=== PATIENT | male | born 1940 | race Caucasian/White ===

== ENCOUNTER 2022-07-27 22:01 | Observation (INO) | payer MEDICARE, BC ==
[2022-07-27 22:56] LABS: #Basophils 0.1 10x3/uL (0.0-0.2); #Eosinphils 0.2 10x3/uL (0.0-0.5); #Monocytes 0.6 10x3/uL (0.0-1.1); #Neutrophils 6.1 10x3/uL (1.5-8.4); %Basophils 0.8 % (0.0-2.0); %Eosinophils 2.3 % (0.0-6.0); %Monocytes 6.9 % (0.0-10.0); %Neutrophils 67.3 % (40.0-75.0); Hemoglobin 14.2 g/dL (13.5-17.5); Mean Corpuscular HGB CONC 34.9 g/dL (32.0-36.0); Mean Corpuscular Hemoglobin 31.3 pg (27.0-33.0); Mean Corpuscular Volume 89.6 fl (81.2-95.1); Mean Platelet Volume 8.9 fl (7.4-10.4); Platelet Count 231 10x3/uL (150-450); RBC Distribution Width 12.7 % (11.5-14.5); Red Blood Cell (RBC) Count 4.54 10x6/uL (4.32-5.72); White Blood Cell (WBC) Count 9.1 10x3/uL (3.5-10.5)
[2022-07-27 22:59] LABS: Bilirubin Neg (Negative); Blood, Urine 150 (Negative); Clarity Mucous (Clear); Glucose, Urine (Dipstick) Normal (Negative); Ketone, Urine Negative (Negative); Leukocyte 500 (Negative); Nitrite Negative (Negative); Protein, Urine (Dipstick) 30 mg/dl (Neg-Trace)
[2022-07-27 23:21] LABS: ALT (SGPT) 23 U/L (8-55); AST (SGOT) 24 U/L (5-34); Alkaline Phosphatase 95 U/L (40-110); Anion Gap 16 mmol/L (10-20); BUN (Urea Nitrogen) 24 mg/dL (8.4-25.7); Bilirubin, Total 0.4 mg/dL (0.2-1.2); Calc. Creatinine Clearance 0 mL/min (70-130); Calcium 9.6 mg/dL (7.8-10.44); Carbon Dioxide 21 mmol/L (23-31); Chloride 106 mmol/L (98-107); Estimated GFR 50; Glucose 97 mg/dL (83-110); Sodium 139 mmol/L (136-145)
[2022-07-27 23:27] LABS: Bacteria/HPF 4+ HPF (None Seen); Squamous Epithelial 0-3 HPF (0-3)
[2022-07-28] MEDS ORDERED: cefTRIAXone\\ROCEPHIN 500 MG VIAL ONE (00:12)
[2022-07-28] MEDS ORDERED: cefTRIAXone\\ROCEPHIN 1 GM VIAL ONE (00:13)
[2022-07-28 01:44] LABS: Lactic Acid 1.6 mmol/L (0.5-2.2)
[2022-07-28] MEDS ORDERED: Acetaminophen 325 MG TAB PO PRN (02:08)
[2022-07-28] MEDS ORDERED: Sodium Chloride 0.45% 1,000 ML IV SCH (02:15)
[2022-07-28 02:36] VITALS: BMI 23.8
[2022-07-28 03:02] LABS: Magnesium 1.9 mg/dL (1.6-2.6)
[2022-07-28] MEDS ORDERED: Enoxaparin Sodium 40 MG/0.4 ML SYRINGE SC SCH (09:00)
[2022-07-28 11:43] VITALS: BP 171/81; TEMP 97.6
[2022-07-28] MEDS ORDERED: Aspirin 325 MG TAB PO SCH (21:00)
[2022-07-28] MEDS ORDERED: Bupropion 150 MG SR TAB PO SCH (21:00)
[2022-07-28] MEDS ORDERED: Donepezil HCl 5 MG TAB PO SCH (21:00)
[2022-07-29] MEDS ORDERED: cefTRIAXone\\ROCEPHIN 1 GM in Sodium Chloride 0.9% 100 ML IVPB SCH (00:30)
[2022-07-29] MEDS ORDERED: Multivit, Therapeutic 1 TAB PO SCH (09:00)
[2022-07-29] MEDS ORDERED: DULoxetine 30 MG CAP PO SCH (09:00)
== END 2022-07-28 12:00 | disposition home or self-care (01) ==
LOC: CSHERS 22:01 → CSHTELE 07-28 01:50 → INTOOBSV 07-28 01:50
PROVIDERS: ADMIT Family Medicine; ATTEND Hospitalist
DX: F03.90 Unspecified dementia, unspecified severity, without behavioral disturbance, psychotic disturbance, mood disturbance, and anxiety (principal); R82.71 Bacteriuria; R35.0 Frequency of micturition; I10 Essential (primary) hypertension; E78.5 Hyperlipidemia, unspecified; U07.1 COVID-19; Z86.73 Personal history of transient ischemic attack (TIA), and cerebral infarction without residual deficits; Z79.82 Long term (current) use of aspirin; Z79.899 Other long term (current) drug therapy; Z90.49 Acquired absence of other specified parts of digestive tract; Z98.890 Other specified postprocedural states
CPT/HCPCS: 70450; 80053; 83605 ×2; 83735; 83880; 84484 ×3; 85025; 87040; 87077; 87086; 87186; 93005; 96365; 96372; 99285; G0378 ×2; U0003; U0005; 36415; 81003; 81015; J0696; J1650

== ENCOUNTER 2023-09-15 22:13 | Emergency (ER) | payer MEDICARE, BC ==
[2023-09-15 23:37] LABS: Troponin I Less than 0.010 ng/mL (< 0.028)
[2023-09-15 23:39] LABS: #Basophils 0.1 10x3/uL (0.0-0.2); #Eosinphils 0.2 10x3/uL (0.0-0.5); #Monocytes 0.9 10x3/uL (0.0-1.1); %Basophils 0.8 % (0.0-2.0); %Eosinophils 2.9 % (0.0-6.0); %Lymphocytes 26.5 % (18.0-47.0); %Monocytes 10.1 % (0.0-10.0); %Neutrophils 59.5 % (40.0-75.0); Hematocrit 44.4 % (38.8-50.0); Hemoglobin 14.6 g/dL (13.5-17.5); Mean Corpuscular HGB CONC 32.9 g/dL (32.0-36.0); Mean Corpuscular Volume 94.3 fl (81.2-95.1); Mean Platelet Volume 9.3 fl (7.4-10.4); Platelet Count 277 10x3/uL (150-450); RBC Distribution Width 12.7 % (11.5-14.5); Red Blood Cell (RBC) Count 4.71 10x6/uL (4.32-5.72); White Blood Cell (WBC) Count 8.4 10x3/uL (3.5-10.5)
[2023-09-15 23:46] LABS: ALT (SGPT) 21 U/L (8-55); AST (SGOT) 21 U/L (5-34); Acetaminophen Less than 10 mcg/mL (10.0-30.0); Albumin 4.4 g/dL (3.4-4.8); Alcohol Less than 10.0 mg/dL (Less than 10); Alkaline Phosphatase 82 U/L (40-110); Anion Gap 15 mmol/L (10-20); BUN (Urea Nitrogen) 24 mg/dL (8.4-25.7); Bilirubin, Total 0.3 mg/dL (0.2-1.2); Calc. Creatinine Clearance 0 mL/min (70-130); Calcium 10.4 mg/dL (7.8-10.44); Carbon Dioxide 25 mmol/L (23-31); Chloride 103 mmol/L (98-107); Estimated GFR 50; Globulin 2.8 g/dL (2.4-3.5); Glucose 88 mg/dL (83-110); Protein, Total 7.2 g/dL (5.8-8.1); Salicylate Less than 8.0 mg/dL (15.0-30.0); Sodium 139 mmol/L (136-145)
[2023-09-15 23:49] LABS: Prothrombin Time 10.5 sec (9.5-12.1)
[2023-09-15 23:55] LABS: Bilirubin Neg (Negative); Blood, Urine 150 (Negative); Clarity Clear (Clear); Glucose, Urine (Dipstick) Normal (Negative); Ketone, Urine Negative (Negative); Leukocyte 500 (Negative); Nitrite Negative (Negative); Protein, Urine (Dipstick) 15 mg/dl (Neg-Trace); Urobilinogen Normal mg/dL (Less than 2)
[2023-09-16 00:12] LABS: Bacteria/HPF 1+ HPF (None Seen); CAUTI Indications for Culture Alt mental st,lethar; Squamous Epithelial 0-3 HPF (0-3); WBC/HPF 21-50 HPF (0-3)
[2023-09-16 00:15] LABS: Urine Culture Reflex Yes Yes
[2023-09-16] MEDS ORDERED: cefTRIAXone (ROCEPHIN) 1 GM VIAL ONE (00:55)
[2023-09-16 05:24] LABS: Actual Bicarbonate (HCO3a) 23.2 mEq/L (22-28); Base Excess (BEa) -0.5 mEq/L (-2.0 to +3.0); CO2 Tension 35.4 mmHg (35.0-45.0); Calcium, Ionized (arterial) 1.27 mmol/L (1.12-1.30); Carboxyhemoglobin (COHb) 0.2 gm% (0.0-3.0); Critical Notified By: CP.MC; Hematocrit-ABG 44 % (42.0-52.0); Hemoglobin (Hb) 14.8 g/dL (14.0-18.0); O2 Tension (PaO2), arterial 78.1 mmHg (> 60.0); Potassium - ABG Lab 3.84 mmol/L (3.70-5.30); Puncture Site RRA; RapidComm Collect By CP.MC; pH, Arterial 7.434 (7.35-7.45)
== END 2023-09-16 02:05 | disposition home or self-care (01) ==
LOC: CSHERS 22:13
DX: N39.0 Urinary tract infection, site not specified (principal); I10 Essential (primary) hypertension; E78.5 Hyperlipidemia, unspecified
CPT/HCPCS: 36600; 70450; 80053; 80307; 81001; 82805; 83605; 84484; 85025; 85610; 87040; 87086; 93005; 96365; J0696